=== PATIENT | female | born 1995 | race African-American/Black ===

== ENCOUNTER 2017-08-03 22:46 | Emergency (ER) | payer BC ==
[2017-08-03 22:55] VITALS: BP 116/62; BMI 36.6
--- NOTE | 2017-08-03 23:19 | ED.ABDFE ---
HPI - Time seen Time seen: 23:05 - PCP Primary Care Physician: ALESIA - HPI Comment HPI Comment: Epigastric abdominal pain x 2 hrs. This is described as burning in nature. She also has nausea without vomitting. She states furthermore that this 'burning" pain is improving/getting better. She has no fever or chills - Complaint Chief Complaint:: ABD PAIN, POINTING TO EPIGASTRIC AREA, FOR 2 HOURS AND N/V TODAY. DENIES ANY DIARRHEA. - Nurses notes reviewed Nurses Notes Review: Yes - Source History Provided: Patient - Mode of arrival Mode of Arrival: Ambulatory - Timing Onset of Chief Complaint: 08/03/17 Came on: Suddenly - Location Location: Epigastric - Quality Quality: Burning - Context : 2 Para: 1 Abortions: 0 - Modifying Worsening Factors: Nothing, Other (supine position) - Associated signs and symptoms Associated Signs and Symptoms: Nausea PMH - PMH Past Medical History: Yes Past Medical History: Migraines Past Surgical History: Yes Surgical History: No History - Family History History of Family Medical Conditions: Yes Family Medical History: Cancer - Social History Does patient currently use any type of tobacco product: No Have you used tobacco products in the last 12 months: No Type of Tobacco Use: None Does any household member use tobacco: No Alcohol Use: None Do you use any recreational Drugs:: No Lives With: Family Lives Where: Home - infectious screening Have you traveled outside the country in the last 6 months?: No Isolation: Standard ROS - Review of Systems Constitutional: No Symptoms Reported Eyes: No Symptoms Reported ENTM: No Symptoms Reported Respiratoy: No Symptoms Reported Cardiovascular: No Symptoms Reported Gastrointestinal/Abdominal: Abdominal Pain (epigastric), Nausea Genitourinary: No Symptoms Reported Neurological: No Symptoms Reported Musculoskeletal: No Symptoms Reported Integumentary: No Symptoms Reported Hematologic/Lymphatic: No Symptoms Reported Endocrine: No Symptoms Reported Psychiatric: No Symptoms Reported All Other Systems: Reviewed and Negative PE - Vital Signs Vitals: Temperature 98.7 F Pulse Rate 66 Respiratory Rate 16 Blood Pressure 116/62 O2 Sat by Pulse Oximetry 98 - General Limitations: No Limitations, Language Barrier General Appearance: Alert, In No Apparent Distress - Head Head Exam: Normal Inspection - Eyes Eye exam: Normal Appearance - ENT ENT Exam: Normal Exam - Neck Neck Exam: Normal Inspection - Chest Chest Inspection: Normal Inspection - Respiratory Respiratory Exam: Normal Lung Sounds Bilat - Cardiovascular Cardiovascular Exam: Regular Rate, Normal Rhythm - Abdominal Exam Abdominal Exam: Normal Bowel Sounds, Soft Abdominal Tenderness: Epigastrium - Rectal Rectal Exam: Deferred - Back Back Exam: Normal Inspection - Extremeties Extremities Exam: Normal Inspection - Neurologic Neurological Exam: Alert, CN II-XII Intact - Psychiatric Psychiatric Exam: Normal Affect, Normal Mood - Skin Skin Exam: Warm, Dry, Intact Course - Reevaluation 1st: Improved ROR - Labs Reviewed Result Diagrams: 08/03/17 23:28 08/03/17 23:28 Laboratory: WBC 10.7 X10^3/uL (3.6-10.0) H 08/03/17 23: RBC 4.19 X10^6/uL (3.5-5.4) 08/03/17 23: Hgb 10.5 g/dL (12.0-16.0) L 08/03/17 23: Hct 31.6 % (36.0-47.0) L 08/03/17 23: MCV 75.4 fL (80.0-100.0) L 08/03/17 23: MCH 25.0 pg (27.0-34.0) L 08/03/17 23: MCHC 33.2 g/dL (33.0-35.0) 08/03/17 23: RDW 16.9 % (11.6-16.5) H 08/03/17 23: Plt Count 279 X10^3/uL (150.0-450.0) 08/03/17 23: Plt Count Comment Adequate (ADEQUATE) 08/03/17 23: MPV 8.6 fL (7.4-11.0) 08/03/17 23: Neut % 71.9 % (42.0-75.0) 08/03/17 23: Lymph % 21.6 % (21.0-51.0) 08/03/17 23: [place] % 4.2 % (0.0-13.0) 08/03/17 23: Eos % 1.6 % (0.9-2.9) 08/03/17 23: Baso % 0.7 % (0.2-1.0) 08/03/17 23: Neut # 7.7 x10^3/uL (2.2-4.8) H 08/03/17 23:28 Lymph # 2.3 X10^3/uL (1.3-2.9) 08/03/17 23:28 [place] # 0.5 x10^3/uL (0.3-0.8) 08/03/17 23:28 Eos # 0.2 x10^3/uL (0.0-0.2) 08/03/17 23: Baso # 0.1 X10^3/uL (0.0-0.1) 08/03/17 23:28 Absolute Nucleated RBC 0.0 /100WBC 08/03/17 23:28 Plt Morphology Comment Normal (NORMAL) 08/03/17 23: RBC Morphology Abnormal (NORMAL) A 08/03/17 23:28 Hypochromasia Slight A 08/03/17 23:28 Microcytosis Slight A 08/03/17 23:28 Sodium 135 mmol/L (136-145) L 08/03/17 23:28 Corrected Sodium TNP 08/03/17 23:28 Potassium 3.0 mmol/L (3.5-5.1) L* 08/03/17 23:28 Chloride 106 mmol/L (98-107) 08/03/17 23:28 Carbon Dioxide 25.0 mmol/L (21-32) 08/03/17 23:28 BUN 4 mg/dL (7-18) L 08/03/17 23:28 Creatinine 0.86 mg/dL (0.55-1.02) 08/03/17 23:28 Est GFR (MDRD) Af Amer > 60 (>60) 08/03/17 23:28 Est GFR (MDRD) Non-Af > 60 (>60) 08/03/17 23:28 Glucose 88 mg/dL (65-99) 08/03/17 23:28 Calcium 8.4 mg/dL (8.5-10.1) L 08/03/17 23:28 Amylase 120 Units/L (25-115) H 08/03/17 23:28 Lipase 128 Units/L (73-393) 08/03/17 23:28 - Diagnosis Discharge Problem: Heartburn during , Hypokalemia - Discharge Plan Disposition: 01 HOME, SELF-CARE Condition: Stable - Follow ups/Referrals Follow ups/Referrals: NFD,None [Primary Care Provider] - 3 days - Instructions
[2017-08-03 23:38] LABS: BASOPHILS # (AUTO) 0.1 X10^3/uL (0.0-0.1); BASOPHILS % (AUTO) 0.7 % (0.2-1.0); EOSINOPHILS # (AUTO) 0.2 x10^3/uL (0.0-0.2); EOSINOPHILS % (AUTO) 1.6 % (0.9-2.9); HEMATOCRIT 31.6 % (36.0-47.0); HEMOGLOBIN 10.5 g/dL (12.0-16.0); LYMPHOCYTES # (AUTO) 2.3 X10^3/uL (1.3-2.9); LYMPHOCYTES % (AUTO) 21.6 % (21.0-51.0); MEAN CORPUSCULAR HGB CONC 33.2 g/dL (33.0-35.0); MEAN CORPUSCULAR VOLUME 75.4 fL (80.0-100.0); MEAN PLATELET VOLUME 8.6 fL (7.4-11.0); MONOCYTES # (AUTO) 0.5 x10^3/uL (0.3-0.8); MONOCYTES % (AUTO) 4.2 % (0.0-13.0); NEUTROPHILS # (AUTO) 7.7 x10^3/uL (2.2-4.8); NEUTROPHILS % (AUTO) 71.9 % (42.0-75.0); PLATELET COUNT 279 X10^3/uL (150.0-450.0); RED BLOOD COUNT 4.19 X10^6/uL (3.5-5.4); RED CELL DISTRIBUTION WIDTH 16.9 % (11.6-16.5); WHITE BLOOD COUNT 10.7 X10^3/uL (3.6-10.0)
[2017-08-03 23:43] LABS: BLOOD UREA NITROGEN 4 mg/dL (7-18); CALCIUM 8.4 mg/dL (8.5-10.1); CHLORIDE 106 mmol/L (98-107); CREATININE 0.86 mg/dL (0.55-1.02); SODIUM 135 mmol/L (136-145); eGFR BLACK RACES > 60 (>60); eGFR NON BLACK RACES > 60 (>60)
[2017-08-03 23:44] LABS: AMYLASE 120 Units/L (25-115); LIPASE 128 Units/L (73-393)
[2017-08-03 23:52] LABS: HYPOCHROMASIA SLIGHT; MICROCYTOSIS SLIGHT; PLATELET MORPHOLOGY COMMENT NORMAL (NORMAL)
[2017-08-03] MEDS ORDERED: K-LYTE EFFERVESCENT ONE (23:57)
[2017-08-03] MEDS ORDERED: MILK OF MAGNESIA ONE (23:57)
[2017-08-04] MEDS ORDERED: MILK OF MAGNESIA PO ONE (23:36)
[2017-08-04] MEDS ORDERED: K-LYTE EFFERVESCENT PO ONE (23:50)
== END 2017-08-04 00:27 | disposition home or self-care (01) ==
LOC: ER 22:46
DX: R12 Heartburn (principal); E87.6 Hypokalemia
CPT/HCPCS: 36415; 80048; 82150; 83690; 85025; 99282; 99284